=== PATIENT | male | born 1985 | race Asian ===

== ENCOUNTER 2016-08-24 19:14 | Emergency (ER) | payer MEDICAID ==
[~2016-08-24] VITALS: Ht 177.8 cm; Wt 90.7 kg
[2016-08-24 19:38] VITALS: BP 176/73
== END 2016-08-24 21:45 | disposition home or self-care (01) ==
LOC: ER 19:23
DX: K11.21 Acute sialoadenitis (principal); J02.9 Acute pharyngitis, unspecified

== ENCOUNTER → 2020-01-31 | Outpatient (CLI) | payer BC | END | disposition home or self-care (01) | LOC: LAB 09:48 | PROVIDERS: ATTEND Nurse Practitioner Family | DX: U07.1 COVID-19 (principal) | CPT/HCPCS: C9803; U0003 ==